=== PATIENT | male | born 1960 | race Caucasian/White ===

== ENCOUNTER → 2021-06-13 | Outpatient (CLI) | payer BC | LOC: KOH-I 14:44 | DX: S62.002A Unspecified fracture of navicular [scaphoid] bone of left wrist, initial encounter for closed fracture (principal); M19.032 Primary osteoarthritis, left wrist | CPT/HCPCS: 73200 ==

== ENCOUNTER → 2021-10-08 | Outpatient (CLI) | payer BC ==
[~2021-10-08] MED LIST: ATORVASTATIN CA80 MG PO; CARBAMAZEPINE200 M1 PO; CARVEDILOL3.125 MG PO; CLOPIDOGREL75 MG PO; ECOTRIN81 MG PO; HYDROCODON-ACE1 EAC2 PO; HYDROXYZINE HCL25 MG PO; LISINOPRIL5 MG PO; PROTONIX40 MG PO; VITAMIN D21250 MCG PO
[2021-10-08 09:49] LABS: HEMOGLOBIN 15.3 gm/dl (14.0-17.5); RED BLOOD COUNT 4.84 M/UL (4.20-5.50); WHITE BLOOD COUNT 4.3 K/UL (4.5-11.0)
[2021-10-08 10:10] LABS: BUN/CREATININE RATIO 22 (0-10)
== END ==
LOC: OPSV2 08:00
PROVIDERS: Orthopaedic Surgery
DX: Z01.818 Encounter for other preprocedural examination (principal)
CPT/HCPCS: 36415; 71046; 80048; 85025; 93005

== ENCOUNTER → 2021-10-15 | Day surgery (SDC) | payer BC | END | disposition home or self-care (01) | LOC: OR 08:43 | DX: G89.29 Other chronic pain (principal); M19.032 Primary osteoarthritis, left wrist; I11.9 Hypertensive heart disease without heart failure; G40.909 Epilepsy, unspecified, not intractable, without status epilepticus; I25.10 Atherosclerotic heart disease of native coronary artery without angina pectoris; E78.5 Hyperlipidemia, unspecified; Z95.818 Presence of other cardiac implants and grafts; J45.909 Unspecified asthma, uncomplicated; K21.9 Gastro-esophageal reflux disease without esophagitis; Z88.8 Allergy status to other drugs, medicaments and biological substances; Z79.82 Long term (current) use of aspirin; Z79.899 Other long term (current) drug therapy; Z80.9 Family history of malignant neoplasm, unspecified | CPT/HCPCS: 73110; 76000; C1713; J0690; J1100; J1200; J2250; J2795; J7120 ==